=== PATIENT | female | born 1965 | race Caucasian/White ===

== ENCOUNTER 2018-10-22 12:16 | Emergency (ER) | payer BC ==
[2018-10-22] MEDS ORDERED: Bacitracin Oint 1 GM U/D Packet TOP ONE (12:21)
--- NOTE | 2018-10-22 12:49 | EDM.PDOC ---
ED HPI GENERAL MEDICAL PROBLEM - General Chief Complaint: Laceration Stated Complaint: LEFT LEG FISH HOOK Time Seen by Provider: 10/22/18 12:35 Source of Information: Reports: Patient History Limitations: Reports: No Limitations - History of Present Illness INITIAL COMMENTS - FREE TEXT/NARRATIVE: 53-year-old female with a fish hook embedded in the posterior aspect of the left calf, lower left extremity. Onset: Today Duration: Hour(s): (Been present for the past hour) Associated Symptoms: Reports: No Other Symptoms Left Lower Leg Pain Score (Numeric/FACES): 1 - Related Data Allergies Allergy/AdvReac Type Severity Reaction Status Date / Time cephalexin [From Keflex] Allergy Rash Verified 10/22/18 12:31 Home Meds: Home Meds Aspirin 81 mg PO DAILY 10/22/18 [History] Cholecalciferol (Vitamin D3) [Vitamin D3] 2,000 units PO DAILY 10/22/18 [History ] Past Medical History HEENT History: Reports: Impaired Vision Musculoskeletal History: Reports: Fracture Dermatologic History: Reports: Cellulitis Social & Family History - Tobacco Use Smoking Status *Q: Never Smoker - Caffeine Use Caffeine Use: Reports: Coffee - Recreational Drug Use Recreational Drug Use: No ED ROS GENERAL - Review of Systems Review Of Systems: See Below Constitutional: Denies: Fever Respiratory: Denies: Shortness of Breath GI/Abdominal: Denies: Nausea, Vomiting Neurological: Reports: No Symptoms ED EXAM, SKIN/RASH Exam: See Below Exam Limited By: No Limitations General Appearance: Alert, No Apparent Distress Respiratory/Chest: No Respiratory Distress Extremities: Other (Exam is otherwise limited to the left lower extremity. The patient has one wilmer of a treble hook embedded into the subcutaneous tissue of the left posterior lower leg.) Course - Vital Signs Last Recorded V/S: Last Vital Signs Temp 98.2 F 10/22/18 12:36 Pulse 62 10/22/18 12:36 Resp 17 10/22/18 12:36 BP 130/100 H 10/22/18 12:36 Pulse Ox 96 10/22/18 12:36 - Orders/Labs/Meds Meds: Medications Discontinued Medications Generic Name Dose Route Start Last Admin Trade Name Freq PRN Reason Stop Dose Admin Bacitracin 1 dose 10/22/18 12:21 10/22/18 12:46 Bacitracin Oint 1 Gm TOP 10/22/18 12:22 1 dose ONETIME ONE Administration Lidocaine HCl 5 ml 10/22/18 12:21 10/22/18 12:47 Xylocaine-Mpf 1% INJECT 10/22/18 12:22 5 ml ONETIME ONE Administration - Re-Assessments/Exams Free Text/Narrative Re-Assessment/Exam: 10/22/18 12:48 The area was sterilized with alcohol, one percent lidocaine was infiltrated into the area and using countertraction and a needle sofia the wilmer was backed out without complication. It was again cleaned with alcohol, topical bacitracin was applied with a Band-Aid. She should keep the wound covered and clean while healing. Departure - Departure Time of Disposition: 13:00 Disposition: Home, Self-Care 01 Condition: Good Clinical Impression: Foreign body - Discharge Information Instructions: Puncture Wound, Myix-ey-Gebm Referrals: PCP,None [Primary Care Provider] - Forms: ED Department Discharge Care Plan Goals: Keep wound covered and clean while healing. Avoid smith water for the next several days. Recheck if concerns of infection or not healing satisfactorily.
== END 2018-10-22 13:00 | disposition home or self-care (01) ==
LOC: JP.ED 12:16
DX: S80.852A Superficial foreign body, left lower leg, initial encounter (principal); Z88.1 Allergy status to other antibiotic agents; Z79.82 Long term (current) use of aspirin; W45.8XXA Other foreign body or object entering through skin, initial encounter
CPT/HCPCS: 99283; J2001